=== PATIENT | female | born 1975 | race Caucasian/White ===

== ENCOUNTER 2016-12-30 16:00 | Observation (INO) ==
[2016-12-30] MEDS: *HR* OxyCODONE Immed Rel 15 MG TABLET PO PRN (20:54)
[2016-12-30] MEDS: Gabapentin 400 MG CAPSULE PO SCH (20:54)
[2016-12-30] MEDS: Clindamycin 600 MG/50 ML 600 MG/50 ML IV.SOLN IVPB SCH (23:51)
[2016-12-31] MEDS: *HR* OxyCODONE Immed Rel 15 MG TABLET PO PRN ×4 (02:58→19:00)
[2016-12-31] MEDS: Venlafaxine XR (24 HR) 75 MG CAP.ER.24H PO SCH (08:19)
[2016-12-31] MEDS: Gabapentin 400 MG CAPSULE PO SCH ×3 (08:19→20:36)
[2016-12-31] MEDS: *HR* GlipiZIDE 5 MG TABLET PO SCH ×2 (08:20→17:50)
[2016-12-31] MEDS: Clindamycin 600 MG/50 ML 600 MG/50 ML IV.SOLN IVPB SCH ×3 (08:20→23:01)
[2016-12-31] MEDS ORDERED: Lidocaine -MPF 1% 5 ML AMPUL INFILT ONE (13:53)
--- NOTE | 2016-12-31 14:18 | Infectious Disease Consult ---
Date of Encounter: 12/31/16 Time of Encounter: 13:55 Assessment and Plan (1) Fixation hardware in spine Status: Acute Assessment and plan: Possible spinal stimulator infection given the patient was moved from the prone position to the supine position intraperatively due to aspiration. The surgical site was covered with iodinated sticky drape and the leads were also coiled under the drape. Lumbar spine x-ray on 12/30/16 revealed successful placement of neurostimulator device. Patient received Cefazolin 2 grams IV prior to the procedure via slow IV infusion and is currenty on IV clindamycin. (She reports allergy to PCN which causes a rash). Physical exam shows no sign of surgical site infection. Recommendations: PICC line placement prior to discharge D/c Clindamycin Start Vancomycin IV Duration of treatment depends on clinical course Case management to arrange home health care for Vancomycin infusions. Montor weekly CBC, BMP, and Vanc trough levels. Follow up with Dr. Richmond in clinic unpon discharge. (2) Aspiration into respiratory tract Status: Acute Assessment and plan: Suspected intra-operative aspiration. During the operation the patient began to regurgitate and desaturate into the 80s and was subsequently moved from the prone position to the supine position. CXR revealed no acute findings. Patient is asymptomatic at this time and denies cough. Patient will be discharged on Vancomycin IV. Qualifiers: Encounter type: initial encounter Qualified Code(s): T17.908A - Unspecified foreign body in respiratory tract, part unspecified causing other injury, initial encounter (3) Reflex sympathetic dystrophy of the lower limb Status: Acute Assessment and plan: Management per primary team Qualifiers: Laterality: left Qualified Code(s): G90.522 - Complex regional pain syndrome I of left lower limb (4) Diabetes mellitus Status: Acute Assessment and plan: Management per primary team Qualifiers: Diabetes mellitus type: type 2 Diabetes mellitus complication status: with unspecified complications Diabetes mellitus fci insulin use: without fci use Qualified Code(s): E11.8 - Type 2 diabetes mellitus with unspecified complications (5) Morbid obesity with BMI of 40.0-44.9, adult Status: Acute Infectious Disease HPI - Data of Consult Consult date: 12/31/16 Requesting Physician: Brad Richmond DO Primary Care Provider: Too Matias - Consult Narrative Reason for consult: Possible infected spine hardware History of present illness: Ms. Davison is a 41 year old female who was admitted on 12/31/16 for overnight observation following aspiration event during surgery on 12/30/16. Infectious disease is consulted on 12/31/16 for antibiotic recommendation to prevent infected spinal hardware. Ms. Davison is a 41 year old female with a PMH significant for diabetes, hyperlipidemia, morbid obesity, and Reflex sympathetic dystrophy syndrome/ complex regional pain syndrome who recently underwent surgical implantation of two spinal cord stimulation leads on 12/30/[address] Richmond. Of note, during the operation the patient began to regurgitate and desaturate into the 80s and was subsequently moved from the prone position to the supine position. The surgical site was covered with iodinated sticky drape and the leads were also coiled under the drape. The surgical team did not want to risk further regurgitation that would put the patient at risk of further aspiration and decided to coil the leads in the midline wound and do a primary closure of the wound in anticipation of returning to the operating room in the future to connect the leads and implant the pulse generator. Since admission she has not met SIRS criteria. Labs have not been performed since pre-op visit on 12/23/16. Lumbar spine x-ray on 12/30/16 revealed successful placement of neurostimulator device and chest x-ray revealed no acute findings. Cultures have not been performed to date. Patient received Cefazolin 2 grams IV prior to the procedure via slow IV infusion and is currenty on IV clindamycin. (She reports allergy to PCN which causes a rash). Today the patient complains of chills but denies productive cough, fever, CP, SOB, abd pain, N/V/D, or bleeding/drainage from the incision site. CC: Brad Richmond, DO Past Med Surg Social Fam HX - Past Medical History Medical history: diabetes, hyperlipidemia, other (RSDS/CRPS) Psychiatric history: anxiety - Past Surgical History Surgical History: , cholecystectomy - Social History Smoking Status: Current every day smoker Smokeless Tobacco Status: No Alcohol use: none Drug use: none - Family History Mother Hx Family Endocrine Disorder: Yes (DM) Father Hx Family Cardiac Disorders: Yes (HTN, Thyroid disease) Infectious Disease-CN:Meds Gabapentin [Neurontin] 800 mg PO TID 12/30/16 [History] Liraglutide [Victoza 2-Shayne] 1.2 mg SQ DAILY 12/30/16 [History] OxyCODONE Immed Rel [Roxicodone 15 MG] 15 mg PO Q6HR PRN 12/30/16 [History] Simvastatin [Zocor] 20 mg PO HS 12/30/16 [History] Venlafaxine HCl [Effexor Xr] 75 mg PO DAILY 12/30/16 [History] glipiZIDE [Glipizide] 10 mg PO BID 12/30/16 [History] Allergies Penicillins Allergy (Verified 12/30/16 10:53) See Comments CHILDHOOD REACTION, UNSURE Review of systems: Travel: denies recent travel Animal exposure: Denies Denies exposure to sick contacts or small children. Diet: denies ingestion of undercooked or raw meats. Dental: denies recent dental procedures - Constitutional Constitutional: Present: chills, weight loss (intentional 40lbs ). Absent: fever(s) - EENT Eyes: Absent: change in vision Nose, mouth and throat: Absent: change in voice, headache(s), nasal congestion - Cardiovascular Cardiovascular: Absent: chest pain, dyspnea, edema - Respiratory Respiratory: Present: cough (resolving). Absent: pain on inspiration, excessive phlegm production - Gastrointestinal Gastrointestinal: Absent: abdominal pain, diarrhea, nausea, vomiting - Musculoskeletal Musculoskeletal: Present: back pain, radiating pain into limb. Absent: tingling - Integumentary Integumentary: Present: lesions, new lesions, wounds. Absent: bleeding lesions - Neurological Neurological: Present: radicular pain, tingling. Absent: abnormal movements, numbness, sensory deficit - Psychiatric Psychiatric: Present: anxiety - Endocrine Endocrine: Absent: cold intolerance, heat intolerance, polydipsia, polyphagia, polyuria - Hematologic/Lymphatic Hematologic/Lymphatic: Absent: lymphadenopathy Exam - Constitutional Vitals: Temp Pulse Resp BP Pulse Ox 98.4 F 70 14 95/59 93 12/31/16 10:30 12/31/16 10:30 12/31/16 10:30 12/31/16 10:30 12/31/16 10:30 General appearance: cooperative, morbidly obese, no acute distress, no febrile - Head Head exam: Present: atraumatic, normal inspection, normocephalic - Eye Eye exam: Present: PERRL, conjuntiva pink - ENT ENT exam: Present: mucous membranes moist, normal oropharynx - Neck Neck exam: Present: normal inspection. Absent: lymphadenopathy, tenderness - Respiratory Respiratory exam: Present: CTAB. Absent: decreased breath sounds, respiratory distress, rhonchi, wheezes - Cardiovascular Cardiovascular exam: Present: RRR, +S1, +S2. Absent: diastolic murmur, systolic murmur - GI/Abdominal GI/Abdominal exam: Present: soft. Absent: guarding, normal bowel sounds, rebound, tenderness - Extremities Exam Extremities exam: Present: full ROM, normal inspection. Absent: pedal edema, tenderness - Back Exam Back exam: Present: tenderness Additional comments: Midline L-spine incision with dressing intact C/D/I - Neurological Exam Neurological exam: Present: alert, oriented X3. Absent: altered, motor sensory deficit - Psychiatric Psychiatric exam: Present: anxious, normal affect - Skin Skin exam: Present: dry, intact, warm. Absent: erythema Additional comments: midline L-Spine incision C/D/I, no surrounding erythema or drainage through 4x4 and Tegaderm dressing Infectious Disease CN: Results - Labs CBC & Chem 7: 01/01/17 04:40 01/01/17 04:40 Consult Discharge Plan - Plan Instructions: Diabetes Mellitus Type 2 in Adults (DC) Referrals: Too Matias [Other] Briana Mendoza PAC [Physician Table Keeper] - 01/14/17 8:10 am - Attending Attestation I examined this patient and my medical decision-making was reviewed with the Resident Physician. I agree with the documented findings, disposition and treatment plan as described except to the extent set forth below. This is an addendum to original report dictated by resident physician. Please refer to resident's note for full detail. Patient is a 41-year-old woman with past medical history mentioned below was getting a pain stimulator electrodes placed in her spine epidural when she went into vomiting episodes desaturation and concern for aspiration. The patient had to be turned into supine position and the concern was that the patient was not in sterile position with the sterile drapes anymore and they will make sure the patient gets evaluated and treated to be especially now with hardware in her spine. Patient seen and examined appears comfortable lying in bed pleasant no acute distress Norstrom issues she does have some dry cough but otherwise she is doing okay. Patient denies any back pain no fevers no chills no other symptoms. The back wound is surgically covered so I was not able to uncover is no surrounding erythema. After long discussion with Dr. Richmond we've decided to err on the side of caution and treat with IV antibiotics. A PICC line will be placed, patient will be started on vancomycin, duration of treatment depends on the clinical picture but we are thinking probably 2 weeks of IV maybe followed by orals for a few more days Kim. We'll continue to check weekly labs, goal vancomycin trough around 10-15.
--- NOTE | 2016-12-31 16:07 | Pain Management Progress Note ---
Date of Encounter: 12/31/16 Time of Encounter: 11:45 - Assessment and Plan (1) Reflex sympathetic dystrophy of the lower limb Current Visit: Yes Status: Acute She is doing well. She does not seem to be displaying signs or symptoms of aspiration pneumonia. She has no shortness of breath or chest pain. She does have coughing that was occurring last night, but it has stopped now. She is afebrile and comfortable sitting. She has pain at the incision site that is mild. The pain is typically present in her left foot is her worst complaint at this point. I spoke to our infectious disease colleagues. Given the fact that she may have had a wound contamination during the stabilization event in the operating room, I would like to place her on IV vancomycin for 2 weeks and then switch her to oral antibiotics. We will organize placement of a peripherally inserted central catheter and coordinate home dosing of vancomycin. I discussed with the patient the plan for her implant. I feel that we were able to keep the leads sterile during the operating room aspiration event. If I can prevent infection, we will bring her back to the operating room for a general anesthetic and implantation of a pulse generator. I will look up her leads at that time and she will have a working neuromodulation system. Qualifiers: Laterality: left Qualified Code(s): G90.522 - Complex regional pain syndrome I of left lower limb Subjective Patient reports: feels better, afebrile (denies shortness of breath, denies chest pain, low back is somewhat sore, foot on left is painful as normal.) Objective Vital Signs - Last 8 Hours Temp Pulse Resp BP Pulse Ox 12/31/16 15:48 98.2 F 74 14 138/88 92 12/31/16 10:30 98.4 F 70 14 95/59 93 12/31/16 08:15 90 Intake and Output 12/31/16 12/31/16 12/31/16 07:59 15:59 23:59 Intake Total 770 / 770 1740 / 1740 Output Total 200 / 200 Balance 770 / 770 1540 / 1540 Intake: IV Fluids 50 / 50 Cleocin Premix 600 MG/50 50 / 50 ML 600 mg In 50 ml @ 50 mls/hr IVPB Q8HR RINA Rx#: [id number] Oral 720 / 720 1740 / 1740 Output: Urine 200 / 200 Other: Meal Lunch Percent of Meal Consumed 100% # Voids 1 Weight 116.709 kg Blood Glucose* 133 107 Patient Weight 12/31/16 23:59 Weight 116.709 kg - General physical appearance well developed, well nourished, no distress - Incision Incision: Present: clean and dry, intact - Psychiatric oriented to time, oriented to person, oriented to place Consult Discharge Plan - Plan Referrals: Too Matias [Other] Briana Mendoza, PAC [Physician Construction Job Titles] - 01/14/17 8:10 am
--- NOTE | 2016-12-31 16:15 | Discharge Summary ---
Date of Encounter: 12/31/16 Time of Encounter: 12:00 - Discharge Diagnosis (1) Reflex sympathetic dystrophy of the lower limb Priority: Secondary Status: Chronic Qualifiers: Laterality: left Qualified Code(s): G90.522 - Complex regional pain syndrome I of left lower limb - Discharge Medications Home Medications: Gabapentin [Neurontin] 800 mg PO TID 12/30/16 [History] Liraglutide [Victoza 2-Shayne] 1.2 mg SQ DAILY 12/30/16 [History] OxyCODONE Immed Rel [Roxicodone 15 MG] 15 mg PO Q6HR PRN 12/30/16 [History] Simvastatin [Zocor] 20 mg PO HS 12/30/16 [History] Venlafaxine HCl [Effexor Xr] 75 mg PO DAILY 12/30/16 [History] glipiZIDE [Glipizide] 10 mg PO BID 12/30/16 [History] Allergies/Adverse Reactions: Allergies Penicillins Allergy (Verified 12/30/16 10:53) See Comments CHILDHOOD REACTION, UNSURE Procedures and tests throughout hospitalization: none Labs on day of discharge: Labs from last 24 hours 12/31/16 12/31/16 11:13 06:55 POC Glucose 132 H 133 H - Impressions good Date of admission: 12/30/16 17:17 Primary care physician: Too Matias Consults: 12/31/16 13:06 Consult to Infectious Diseases [CONS] Routine Consulting Provider: Infectious Disease Lena Reason for Consult: infected spine hardware? Time Notified: 13:07 Call Completed: Yes 12/31/16 13:53 Consult to Invasive Line Access Team [CONS] Routine Reason for Consult: Picc Line Insertion Line Type: PICC Discharging clinician: Brad Richmond Anticipated date of discharge: 12/31/16 - Patient Status Disposition: Home, Self-Care Condition: Good Functional capacity at discharge: independent ambulation Overall status at discharge: patient is back to baseline - Discharge Instructions Instructions: Diabetes Mellitus Type 2 in Adults (DC) Follow Up With: Too Matias [Other] Briana Mendoza PAC [Physician Basket Weaver] - 01/14/17 8:10 am - Diet and Activity Activity: increase activity as tolerated Diet: advance to your usual diet - Hospital Course Hospital course: Ms. Davison is a 41 year old female who underwent a potential aspiration event in the operating room during placement of a spinal cord stimulator implant. The implant was longterm placed during the event and the ensuing stabilization administered to the patient may have resulted in contamination of the midline wound and the implanted hardware. Secondary to this concern, the patient was admitted for observation overnight. She did not develop any signs or symptoms of aspiration pneumonia or aspiration pneumonitis. The patient was then set up for home antibiotics as a prophylactic measure to prevent further wound infection and potential removal of already implanted hardware. The patient received a peripherally inserted central catheter prior to discharge. - Time Spent with Patient Total time spent providing and/or coordinating discharge services: Less than 30 minutes Physical Exam Initial Vital Signs Temp Pulse Resp BP Pulse Ox 98.2 F 96 17 122/80 91 12/30/16 17:38 12/30/16 17:38 12/30/16 17:38 12/30/16 17:38 12/30/16 17:38 - General physical appearance General physical appearance: awake & oriented, no distress, no pain - Eyes Eye exam: normal ocular movement - ENT normal pinna, normal nares - Neck no masses - Respiratory normal respiratory effort - Abdomen Abdomen: soft, non tender, bowel sounds - Rectum Rectum: normal sphincter tone - Integumentary Integumentary general surgery: no rash (midline wound bandaged, clean and dry.) - Neurologic normal coordination - Musculoskeletal Musculoskeletal: normal gait, normal posture - Psychiatric Psychiatric: oriented to time, oriented to person, oriented to place
[2016-12-31] MEDS: Vancomycin 1,500 MG in D5% in Water 250 ML IVPB SCH (17:26)
[2017-01-01] MEDS: *HR* OxyCODONE Immed Rel 15 MG TABLET PO PRN ×4 (01:02→17:34)
[2017-01-01] MEDS: Vancomycin 1,500 MG in D5% in Water 250 ML IVPB SCH ×2 (04:43→15:19)
[2017-01-01 05:04] LABS: Basophils # 0.1 K/mcL (0.0-0.2); Basophils % 0.6 %; Eosinophils # 0.1 K/mcL (0.0-0.6); Eosinophils % 0.6 %; Hematocrit 39.5 % (35.3-44.9); Immature Granulocytes % 0.2 % (0-4); Lymphocytes # 3.1 K/mcL (0.6-4.6); Lymphocytes % 30.1 %; Mean Corpuscular HGB Conc 32.9 g/dL (31.6-35.5); Mean Corpuscular Hemoglobin 30.5 pg (28.0-33.3); Mean Corpuscular Volume 92.7 fL (83.0-100.0); Mean Platelet Volume 9.8 fL (9.4-12.4); Monocytes # 0.6 K/mcL (0.0-1.3); Neutrophils # 6.5 K/mcL (1.6-8.9); Platelet Count 274 K/mcL (140-400); Red Blood Count 4.26 M/mcL (3.82-4.97); Segmented Neutrophils % 62.5 %
[2017-01-01 05:20] LABS: BUN/Creatinine Ratio 16 (6-26); Blood Urea Nitrogen 10 mg/dL (7-20); Carbon Dioxide 27 mEq/L (19-29); Chloride 105 mEq/L (98-109); Glucose 137 mg/dL (70-99); Osmolality,Calculated 289 (280-300); Potassium 4.1 mEq/L (3.5-4.5); Sodium 139 mEq/L (136-145); eGFR For African Americans > 60 (> 60); eGFR For Non-African Americans > 60 (> 60)
[2017-01-01] MEDS: Clindamycin 600 MG/50 ML 600 MG/50 ML IV.SOLN IVPB SCH ×2 (07:37→14:15)
[2017-01-01] MEDS: *HR* GlipiZIDE 5 MG TABLET PO SCH ×2 (07:38→16:47)
[2017-01-01] MEDS: Gabapentin 400 MG CAPSULE PO SCH ×2 (07:39→14:14)
[2017-01-01] MEDS: Venlafaxine XR (24 HR) 75 MG CAP.ER.24H PO SCH (07:39)
--- NOTE | 2017-01-01 08:19 | Infectious Disease Progress No ---
Date of Encounter: 01/01/17 Time of Encounter: 08:17 - Assessment and Plan (1) Fixation hardware in spine Current Visit: Yes Status: Acute Possible spinal stimulator infection given the patient was moved from the prone position to the supine position intraperatively due to aspiration. The surgical site was covered with iodinated sticky drape and the leads were also coiled under the drape. Lumbar spine x-ray on 12/30/16 revealed successful placement of neurostimulator device. Patient received Cefazolin 2 grams IV prior to the procedure via slow IV infusion and is currenty on IV clindamycin. (She reports allergy to PCN which causes a rash). Physical exam shows no sign of surgical site infection. Recommendations: PICC line placement prior to discharge D/c Clindamycin Start Vancomycin IV Duration of treatment depends on clinical course Case management to arrange home health care for Vancomycin infusions. Oscaror weekly CBC, BMP, and Vanc trough levels. Follow up with Dr. Richmond in clinic upon discharge. (2) Aspiration into respiratory tract Current Visit: Yes Status: Acute Suspected intra-operative aspiration. During the operation the patient began to regurgitate and desaturate into the 80s and was subsequently moved from the prone position to the supine position. CXR revealed no acute findings. Patient is asymptomatic at this time and denies cough. Patient on Clindamycin since surgery. Patient will be discharged on Vancomycin IV. (3) Reflex sympathetic dystrophy of the lower limb Current Visit: Yes Status: Chronic Management per primary team Qualifiers: Laterality: left Qualified Code(s): G90.522 - Complex regional pain syndrome I of left lower limb (4) Diabetes mellitus Current Visit: Yes Status: Acute Management per primary team (5) Morbid obesity with BMI of 40.0-44.9, adult Current Visit: Yes Status: Acute (6) Tobacco dependence Current Visit: Yes Status: Acute - Subjective Interval history: Patient seen and examined. No acute events overnight. Patient is POD #2 s/p surgical implantation of two spinal cord stimulation leads on 12/30/16. Patient denies fever, chills, CP, SOB, abdominal pain, N/V/D, or bleeding from incision site. Infect Dis PN-Objective Data - Labs CBC & Chem 7: 01/01/17 04:40 01/01/17 04:40 Labs: Laboratory Results - last 24 hr 12/31/16 12/31/1617 11:13 15:51 20:21 WBC RBC Hgb Hct MCV MCH MCHC RDW Plt Count MPV Immature Gran % Seg Neutrophils % Lymphocytes % Monocytes % Eosinophils % Basophils % Neutrophils # Lymphocytes # Monocytes # Eosinophils # Basophils # Sodium Potassium Chloride Carbon Dioxide BUN Creatinine Est GFR ( Amer) Est GFR (Non-Af Amer) BUN/Creatinine Ratio Glucose POC Glucose 132 H 107 H 173 H Calculated Osmolality Calcium 01/01/17 01/01/17 04:40 04:40 WBC 10.4 RBC 4.26 Hgb 13.0 Hct 39.5 MCV 92.7 MCH 30.5 MCHC 32.9 RDW 12.0 Plt Count 274 MPV 9.8 Immature Gran % 0.2 Seg Neutrophils % 62.5 Lymphocytes % 30.1 Monocytes % 6.0 Eosinophils % 0.6 Basophils % 0.6 Neutrophils # 6.5 Lymphocytes # 3.1 Monocytes # 0.6 Eosinophils # 0.1 Basophils # 0.1 Sodium 139 Potassium 4.1 Chloride 105 Carbon Dioxide 27 BUN 10 Creatinine 0.61 Est GFR ( Amer) > 60 Est GFR (Non-Af Amer) > 60 BUN/Creatinine Ratio 16 Glucose 137 H POC Glucose Calculated Osmolality 289 Calcium 9.0 Exam - Constitutional Vitals: Temp Pulse Resp BP Pulse Ox 97.8 F 65 19 133/78 95 01/01/17 04:44 01/01/17 04:44 01/01/17 04:44 01/01/17 04:44 01/01/17 04:44 General appearance: cooperative, morbidly obese, no acute distress, no febrile - Head Head exam: Present: atraumatic, normal inspection, normocephalic - Eye Eye exam: Present: PERRL, conjuntiva pink - ENT ENT exam: Present: mucous membranes moist, normal oropharynx - Neck Neck exam: Present: normal inspection. Absent: lymphadenopathy, tenderness - Respiratory Respiratory exam: Present: CTAB - Cardiovascular Cardiovascular exam: Present: RRR, +S1, +S2 - GI/Abdominal GI/Abdominal exam: Present: normal bowel sounds, soft. Absent: guarding, rebound, tenderness - Extremities Exam Extremities exam: Present: full ROM, normal inspection. Absent: pedal edema - Back Exam Additional comments: Midline L-spine incision with dressing, incision intact, dry, and minimal serosanguineous drainage on dressing, no bleeding - Neurological Exam Neurological exam: Present: alert, oriented X3. Absent: altered - Psychiatric Psychiatric exam: Present: normal affect, normal mood - Skin Additional comments: Midline L-spine incision with dressing, incision intact, dry, and minimal serosanguineous drainage on dressing, no bleeding Consult Discharge Plan - Plan Instructions: Diabetes Mellitus Type 2 in Adults (DC) Referrals: Too Matias [Other] Briana Mendoza, PAC [Physician Ordnance Equipment Worker] - 01/14/17 8:10 am
--- NOTE | 2017-01-01 13:48 | Physician Discharge Referral ---
Home Health/Hosp Referral Info Attending Provider: Brad Richmond Provider in Charge Post Discharge: Other - Diagnosis (1) Reflex sympathetic dystrophy of the lower limb Status: Acute - Respiratory Orders Smoking Cessation: Smoking cessation has been advised. For more information, call the [place] Tobacco Quit Line at 1-304-HHSJ-NOW. - Dressing/Wound Care Site: midline lumbar wound Type of Dressing/Treatments w/Frequency: change dressing q4 days x 6 weeks. Apply sterile gauze and tegaderm with sterile gloves. Watch for erythema, wound drainage, skin coming apart, other signs of infection. Also watch for fever, chills, nausea, sweating, or feeling ill. - Diet/Nutrition Diet/Nutrition Orders: Regular - Activity Activity Orders: Up ad nina - Services Needed Following services are medically necessary services: Nursing, Home Infusion Other Treatments: vancomycin 1500 mg IV BID, Dr. Pyle following for dosage at this time. - Transfer Medications Home Medications: Gabapentin [Neurontin] 800 mg PO TID 12/30/16 [History] Liraglutide [Victoza 2-Shayne] 1.2 mg SQ DAILY 12/30/16 [History] OxyCODONE Immed Rel [Roxicodone 15 MG] 15 mg PO Q6HR PRN 12/30/16 [History] Simvastatin [Zocor] 20 mg PO HS 12/30/16 [History] Venlafaxine HCl [Effexor Xr] 75 mg PO DAILY 12/30/16 [History] glipiZIDE [Glipizide] 10 mg PO BID 12/30/16 [History] Allergies/Adverse Reactions: Allergies Penicillins Allergy (Verified 12/30/16 10:53) See Comments CHILDHOOD REACTION, UNSURE Certification: Further, I certify that my clinical findings support that this patient is homebound (i.e. absences from home require considerable and taxing effort and are for medical reasons or zoroastrianism services or infrequently or short duration when for other reasons) because: Homebound Reason: Patient requires assistance of a person or device to safely leave home, Post-surgery restriction and or conditions limit ability to leave home Attestation: My signature below is to certify that this patient is under my care and that I, or nurse practitioner, or a physician's library services assistant working with me, has a face-to -face encounter with this patient.
[2017-01-01 15:39] VITALS: BP 114/74
[2017-01-01] MEDS ORDERED: Aminoglycoside Consult 1 EACH MC ONE (17:43)
--- NOTE | 2017-01-08 10:18 | Pain Management History & Phys ---
Date of Encounter: 01/01/17 Time of Encounter: 12:00 Assessment and Plan (1) Reflex sympathetic dystrophy of the lower limb Status: Chronic Discharged to home with the service of home health for IV antibiotic administration as well as dressing change. The patient has scheduled follow-up with me in the office this week. The assessment and plan as outlined above was discussed with the patient and/or family members who expressed understanding and agreement. All questions were answered. Qualifiers: Laterality: left Qualified Code(s): G90.522 - Complex regional pain syndrome I of left lower limb History of Present Illness Chief complaint: left foot pain HPI: Ms. Davison is a 41 year old female suffering with burning 10/10 pain in the left foot that does not radiate from her back. The pain has been present for over one year and does not respond to medication or physical therapy. The patient underwent recent placement of spinal neuromodulation leads. During the surgery, the patient experienced vomiting while in the prone position in the operating room. The surgical drapes were taken down in preparation for turning the patient supine to stabilize her airway. Because of the break in sterile procedure, the leads were coiled within the open wound and the wound was closed primarily. She is now maintained on prophylactic IV and oral antibiotics in preparation for return to the OR in the next 2 months to have placement of an implanted pulse generator. The patient is being discharged to the care of home health for dressing changes as well as IV antibiotics. IV antibiotics are directed by infectious disease service. Past Med Surg Social Fam HX - Past Medical History Medical history: diabetes, hyperlipidemia, other (RSDS/CRPS) Psychiatric history: anxiety - Past Surgical History Surgical History: , cholecystectomy - Social History Smoking Status: Current every day smoker Smokeless Tobacco Status: No Alcohol use: none Drug use: none - Family History Mother Hx Family Endocrine Disorder: Yes (DM) Father Hx Family Cardiac Disorders: Yes (HTN, Thyroid disease) Medications and Allergies Gabapentin [Neurontin] 800 mg PO TID 12/30/16 [History] Liraglutide [Victoza 2-Shayne] 1.2 mg SQ DAILY 12/30/16 [History] OxyCODONE Immed Rel [Roxicodone 15 MG] 15 mg PO Q6HR PRN 12/30/16 [History] Simvastatin [Zocor] 20 mg PO HS 12/30/16 [History] Venlafaxine HCl [Effexor Xr] 75 mg PO DAILY 12/30/16 [History] glipiZIDE [Glipizide] 10 mg PO BID 12/30/16 [History] 3 Allergy/AdvReac Type Severity Reaction Status Date / Time Penicillins Allergy See Verified 12/30/16 10:53 Comments Review of Systems - Constitutional Constitutional ROS IM: no photophobia, no phonophobia, no daytime sleepiness, no fever(s), no stops breathing during sleep - EENT Nose, mouth and throat: no headache(s), no neck pain, no neck trauma - Cardiovascular Cardiovascular ROS: no chest pain, no leg edema, no lightheadedness - Respiratory Respiratory: no pain on inspiration, no pain with cough - Gastrointestinal Gastrointestinal: no abdominal pain, no constipation, no diarrhea, no heartburn - Genitourinary Genitourinary ROS: no difficulty urinating, no flank pain, no urinary hesitancy - Musculoskeletal Musculoskeletal ROS: no muscle weakness, no numbness, no radiating pain into limb, no tingling - Integumentary Integumentary: no erythema, no lesions, no swelling - Neurological Neurological ROS: no abnormal gait, no behavioral changes, no focal weakness, no radicular pain - Psychiatric Psychiatric general: no anxiety, no confusion, no depression - Hematologic/Lymphatic Hematologic/Lymphatic pediatric: no easy bleeding, no easy bruising Physical Exam Initial Vital Signs Temp Pulse Resp BP Pulse Ox 98.2 F 96 17 122/80 91 12/30/16 17:38 12/30/16 17:38 12/30/16 17:38 12/30/16 17:38 12/30/16 17:38 - General physical appearance General physical appearance: awake & oriented, no distress, no pain - Eyes Eye exam: normal ocular movement - ENT normal pinna, normal nares - Neck no masses - Respiratory normal respiratory effort - Abdomen Abdomen: soft, non tender, bowel sounds - Integumentary Integumentary general surgery: no rash (Midline wound intact, no signs of infection. No swelling no drainage no erythema. Brandon intact.) - Neurologic normal coordination - Musculoskeletal Musculoskeletal: normal gait, normal posture - Psychiatric Psychiatric: oriented to time, oriented to person, oriented to place Results - Labs 01/01/17 04:40 01/01/17 04:40 Abnormal lab results Glucose 137 mg/dL (70-99) H 01/01/17 04:40 POC Glucose 117 (58-89) H 01/01/17 11:54 All other labs normal.
== END 2017-01-01 17:44 | disposition home health service (06) ==
LOC: 3ANU
PROVIDERS: ADMIT Student in an Organized Health Care Education/Training Program; ATTEND Student in an Organized Health Care Education/Training Program